=== PATIENT | male | born 1965 | race Caucasian/White ===

== ENCOUNTER → 2023-08-17 06:36 | Day surgery (SDC) | payer BC, SELFPAY | LOC: GI 06:36 | PROVIDERS: ATTENDING PHYSICIAN Specialist | DX: Z12.11 Encounter for screening for malignant neoplasm of colon (principal); D12.0 Benign neoplasm of cecum; D12.3 Benign neoplasm of transverse colon; K57.30 Diverticulosis of large intestine without perforation or abscess without bleeding; Z80.0 Family history of malignant neoplasm of digestive organs | CPT/HCPCS: 45385; 45380; 88305 ==

== ENCOUNTER → 2023-11-03 08:27 | Outpatient (REF) | payer BC, SELFPAY | LOC: HWRAD 08:27 | PROVIDERS: ATTENDING PHYSICIAN Internal Medicine | DX: E04.1 Nontoxic single thyroid nodule (principal) | CPT/HCPCS: 76536 ==

== ENCOUNTER → 2023-11-18 13:27 | Outpatient (REF) | payer BC, SELFPAY | LOC: RADI 13:27 | PROVIDERS: ATTENDING PHYSICIAN Internal Medicine | DX: E04.1 Nontoxic single thyroid nodule (principal) | CPT/HCPCS: 88173; 10005 ==

== ENCOUNTER → 2024-04-18 12:46 | Outpatient (REF) | payer BC, SELFPAY | LOC: HWRAD 12:46 | PROVIDERS: ATTENDING PHYSICIAN Nurse Practitioner Family | DX: M79.605 Pain in left leg (principal) | CPT/HCPCS: 72100; 73502 ==